=== PATIENT | male | born 1960 | race Caucasian/White ===

== ENCOUNTER 2016-08-02 09:25 | Emergency (ER) | payer OTHER ==
[~2016-08-02] VITALS: Ht 182.9 cm; Wt 99.8 kg
--- NOTE | ~2016-08-02 | EKG ---
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 : 1960 Requested By: Maykel Huitron Order Number: [id number] MD: José Dixon Measurements Intervals [place] Rate: 58 P: 31 OR: 160 QRS: -4 QRSD: 96 T: 35 QT: 446 QTc: 439 Interpretive Statements Sinus rhythm No significant abnormality Compared to ECG 12/14/2015 19:09:15 No significant change was found Electronically Signed On 08-03-2016 13:32:47 ALIGNMENT SPECIALIST by José Dixon [email or web address] <ELECTRONICALLY SIGNED> By: José Dixon MD, [facility] 08/03/16 1332 1020 1020 José Dixon MD, FACC /EPI
[~2016-08-02 09:25] MED LIST: AMOXICILLIN 50500 MG PO; ASPIR 8181 MG PO; ASPIRIN325 PO; BIAXIN500 MG PO; CHLORTHALIDONE25 MG PO; CLONAZEPAM 1 MG1 M1 PO; COLACE100 MG PO; FAMOTIDINE PO; GAS-X125 MG PO; IBUPROFEN 800800 M1 PO; MIRALAX17 GM PO; NAPROSYN500 MG PO; NORCO 10-325 T1 EACH PO; NORFLEX100 MG PO; OXYCODONE HCL 55 MG PO; OXYCONTIN20 M1 PO; PEPCID20 MG PO; PERCOCET 5-3251 EACH PO; PREVACID30 MG PO; TOPROL XL50 MG PO; ZOFRAN ODT4 MG PO
[2016-08-02] MEDS ORDERED: COZAAR 50 MG TA50 M2 PO (09:32)
== END 2016-08-02 11:16 | disposition home or self-care (01) ==
LOC: ER 09:25
DX: M54.12 Radiculopathy, cervical region (principal); R07.89 Other chest pain; M25.552 Pain in left hip; G25.81 Restless legs syndrome; K21.9 Gastro-esophageal reflux disease without esophagitis; F41.9 Anxiety disorder, unspecified; I10 Essential (primary) hypertension; B19.20 Unspecified viral hepatitis C without hepatic coma; Z98.890 Other specified postprocedural states; F17.210 Nicotine dependence, cigarettes, uncomplicated; F10.99 Alcohol use, unspecified with unspecified alcohol-induced disorder

== ENCOUNTER 2017-07-28 20:18 | Inpatient (IN) | payer OTHER ==
[~2017-07-28] VITALS: Ht 182.9 cm; Wt 99.8 kg
--- NOTE | ~2017-07-28 | S ---
[facility] [place] [address] [place] [address] SURGICAL PATH RPT PROCEDURE Name: FREDRICK CORCORAN Room #: 359-P ADM IN M.R.#: [id number] Admission: 07/28/17 Date of : 64 Discharge: Report #: [id number] Path Case #: [id number] PATHOLOGY REPORT COLLECTION DATE: 07/29/2017 RECEIVED DATE: 07/29/2017 SUBMITTING PHYS: Dr. Fran Martinez OTHER PHYS: Dr. Yordy Hyman SPECIMEN(S) RECEIVED: A.Antrum B.Distal esophagus * * * * * * * * * * * * FINAL DIAGNOSIS: A. "Antrum", biopsy: - Gastric antral type mucosa with khbz-sw-vbffccdf chronic active gastritis, mild activity. - H. pylori organisms PRESENT in moderate numbers by immunohistochemical stain (block A1); control reacted appropriately. B. "Distal esophagus", biopsy: - Esophageal squamous mucosa and gastric cardiac type mucosa with reactive changes, acute and chronic inflammation and focal intestinal metaplasia; no dysplasia seen (see comment). 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 Clinical and endoscopic correlation is required. (CLW:kai; 07/30/2017) PATHOLOGIST: Rose Mary Last M.D. REPORT ELECTRONICALLY SIGNED BY: Rose Mary Last M.D. DATE/TIME: 07/30/2017 16:49 * * * * * * * * * * * * GROSS PATHOLOGY: A. Received in formalin labeled "Fredrick Corcoran BX of antrum, rule out H. pylori," is a segment of bryant soft tissue measuring 0.4 cm in maximum dimension. The specimen is submitted entirely in cassette A1. B. Received in formalin labeled "Fredrick Corcoran LARRY distal esophagus, rule out Guzman's," are 3 segments of bryant soft tissue measuring 0.4 x 0.4, 0.2 cm in aggregate dimensions and ranging from 0.1 to 0.2 cm in maximum dimension. The specimen is submitted entirely in cassette B1. (TSD; 07/29/2017) [address] [address] SURGICAL PATH RPT PROCEDURE Name: FRDERICK CORCORAN Cris Room #: 359-P [facility] IN M.R.#: [id number] Admission: 07/28/17 Date of : 64 Discharge: Report #: [id number] Path Case #: [id number] CLINICAL HISTORY: Pre-OP DX: Nausea/vomiting Post-OP DX: Esophagitis, gastritis, hiatal hernia INITIAL CPT CODE(S): A; 74650, 48608 B; 67566 Professional services performed by [facility] at [address] , [place] [address] Technical services performed by [facility] at [address] [place] [address], [facility] [address] [address]. [facility] [address] [address] PHONE: [phone] DIRECTOR: Bon Stephens M.D. * * * END OF REPORT * * *
--- NOTE | ~2017-07-28 | EKG ---
[place] [address] [facility] 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 : 1960 Requested By: Dorothy Gordon Order Number: [id number] MD: Jose He Measurements Intervals [place] Rate: 95 P: -13 FL: 165 QRS: -37 QRSD: 92 T: 51 QT: 343 QTc: 431 Interpretive Statements Sinus rhythm Atrial premature complex RSR' in V1 or V2, probably normal variant Inferior infarct, old Artifact in lead(s) I,II,aVR,aVL,aVF and baseline wander in lead(s) V3 Compared to ECG 08/02/2016 10:20:48 Atrial premature complex(es) now present RSR' in V1 or V2 now present Myocardial infarct finding now present Electronically Signed On 07-29-2017 7:46:13 DRYWALL MECHANIC by Jose He [email or web address] <ELECTRONICALLY SIGNED> By: Jose He MD 07/29/17 0746 26 26 Jose He MD /EPI
--- NOTE | ~2017-07-28 | H ---
[facility] [place] [address] [place] [address] HISTORY AND PHYSICAL Name: FOZIA HOWARD Room #: 359-P ADM IN M.R.#: [id number] Admission: 07/28/17 Attend Phys: Yordy Hyman MD, FAAF Discharge: Date of : 64 Report #: [id number] THIS REPORT FOR: //name// CC: Zen Hyman DATE OF SERVICE: 07/29/2017 CHIEF COMPLAINT: Vomiting blood. HISTORY OF PRESENT ILLNESS: The patient is a 56-year-old white male fairly well known to me over the last several years, although he does not come to the doctor very often. He reports drinking quite a bit more alcohol over the last year than he had previously reported to me. He says he vomits every morning and the morning of this admission, he vomited blood came out as a stream of blood. He proceeded to the Emergency Department at [facility] and was admitted to the floor from where GI consult is obtained and he is now just recently back from the GI suites after an upper endoscopy that showed esophagitis and gastritis, an ultrasound did show hepatosplenomegaly. He does have a history of untreated hepatitis C. PAST MEDICAL HISTORY: Hepatitis C, GI bleeding even as a teenager, lumbar fracture age 19 from mechanical bowl, H. pylori gastrointestinal, L5-S1 microdiskectomy, Dr. Haney, varicose veins, ulcers. MEDICATIONS: OxyContin 20 mg 1 p.o. t.i.d., losartan/hydrochlorothiazide 100/25 one p.o. daily, Pepcid 20 mg 1 p.o. b.i.d. p.r.n., 81 mg aspirin daily, ondansetron 4 mg p.o. q. 6 hours p.r.n. nausea, Klonopin 1 mg p.o. at bedtime p.r.n. restless legs, ibuprofen 800 mg 1 p.o. q. 8 hours p.r.n. pain, simethicone 125 mg 1 p.o. q.i.d. p.r.n. gaseous distention. ALLERGIES: No known drug allergies. FAMILY HISTORY: Father of esophageal cancer, also had prostate cancer and varicose veins. SOCIAL HISTORY: He is , smokes a pack a day of cigarettes, has been drinking heavily over the last year, prior to that drinks occasionally. REVIEW OF SYSTEMS: CONSTITUTIONAL: Low grade temperature elevation, q.a.m. vomiting. EYES: No visual changes. ENT: No problems with hearing, swallow, taste or smell. CARDIOVASCULAR: No chest pain or palpitations. RESPIRATORY: No difficulty breathing. [facility] [address] [place] [address] HISTORY AND PHYSICAL Name: FOZIA HOWARD Cris Room #: 359-P [facility] [place] M.R.#: [id number] Admission: 07/28/17 Attend Phys: Yordy Hyman MD, FAAF Discharge: Date of : 64 Report #: [id number] GASTROINTESTINAL: Abdominal pain across the epigastrium, nausea and vomiting and vomiting blood on the morning of this admission. GENITOURINARY: No problems urinating. MUSCULOSKELETAL: Chronic back pain, restless legs. NEUROLOGIC: No paresis, paralysis or paresthesias. PSYCHIATRIC: Frustrated, not depressed. DERMATOLOGIC: No disturbing lesions or rash. Remainder of system review is negative. OBJECTIVE: VITAL SIGNS: Temperature is 37.1, pulse 108, respirations 20, blood pressure 132/95, pulse ox on room air is 100%. GENERAL: He appears fatigued, but is in no acute distress. HEENT: Pupils equal, round, reactive to light and accommodation. Extraocular muscles intact. Pharynx unremarkable. NECK: Supple. COR: S1, S2. CHEST: Clear. ABDOMEN: Soft, has tenderness across the epigastrium. No guarding or rebound. EXTREMITIES: Not edematous. NEUROLOGIC: He is intact without focal neurologic deficit. IMAGING: EKG in the Emergency Department, sinus rhythm at 95, left axis deviation, no acute ischemic changes. LABORATORY DATA: CBC: White count 7.8, hemoglobin 17.6, hematocrit 51.3, platelets 173,000, mean corpuscular volume elevated at 104.1. Serum chemistry: Sodium 139, potassium 4.0, chloride 106, CO2 of 25, BUN 16, creatinine 1.4, glomerular filtration rate estimated at 53, glucose 140, lactic acid 2.1, calcium 9.2, total bilirubin 0.7, direct bilirubin 0.3, AST 152, ALT 123, alkaline phosphatase 122, total protein 9.1, albumin 3.8, lipase 434. Protime 10.8, INR 1.1, APTT 25.6. Serum alcohol level 138. ASSESSMENT: Upper gastrointestinal bleed, gastritis, esophagitis, hepatitis C, hematemesis, alcohol abuse, elevated liver function tests, nausea and vomiting. PLAN: Admit to hospital, proton pump inhibition. Recommend abstaining from alcohol abuse and stopping smoking. A Gastroenterology consult is working. Recommend he consider treatment for hepatitis C. <ELECTRONICALLY SIGNED> By: Yordy Hyman MD, FAAFP, FACEP 07/30/17 0746 2333 0020 Yordy Hyman MD, FAAFP, FACEP /nt
[~2017-07-28 20:18] MED LIST changes: +COZAAR 50 MG TA50 M2 PO
[2017-07-28 20:19] VITALS: BP 132/95
[2017-07-28] MEDS ORDERED: HYZAAR 100-251 EACH PO (20:34)
[2017-07-28 20:50] LABS: ABSOLUTE NEUTROPHILS 5.3 thou/uL (1.4-8.2); EOSINOPHILS 2.3 % (0.0-3.0); HEMATOCRIT 51.3 % (42.0-52.0); HEMOGLOBIN 17.6 gm/dL (14.0-18.0); LYMPHOCYTES 24.4 % (24.0-44.0); MCH 35.7 pg (26.0-34.0); MCHC 34.3 g/dL (28.0-37.0); MCV 104.1 fL (80.0-100.0); MONOCYTES 4.6 % (1.0-8.0); PLATELET COUNT 173 thou/uL (150-400); POLYS 67.7 % (36.0-66.0); RBC 4.92 mil/uL (4.50-6.00); WBC 7.8 thou/uL (4.0-11.0)
[2017-07-28 20:59] LABS: CALCIUM 9.2 mg/dL (8.5-10.1); CREATININE 1.4 mg/dL (0.7-1.3)
[2017-07-28 21:05] LABS: ALBUMIN 3.8 g/dL (3.4-5.0); DIRECT BILIRUBIN 0.3 mg/dL (<0.1-0.3); TOTAL BILIRUBIN 0.7 mg/dL (<0.1-1.0); TOTAL PROTEIN 9.1 g/dL (6.4-8.2)
[2017-07-28 21:09] LABS: APTT 25.6 Seconds (24.5-32.8); INR 1.1; PROTIME 10.8 Seconds (9.3-11.4)
[2017-07-28 22:37] VITALS: BP 123/77
[2017-07-29 03:57] VITALS: BP 133/94
[2017-07-29 08:06] VITALS: BP 138/98
[2017-07-29 17:26] VITALS: BP 121/78
[2017-07-29 19:10] VITALS: BP 122/75
[2017-07-30 04:02] VITALS: BP 122/81
[2017-07-30 06:30] LABS: ALBUMIN 2.8 g/dL (3.4-5.0); DIRECT BILIRUBIN 0.3 mg/dL (<0.1-0.3)
[2017-07-30 08:04] LABS: MCH 35.5 pg (26.0-34.0); MCHC 33.9 g/dL (28.0-37.0); MCV 104.8 fL (80.0-100.0); RBC 4.2 mil/uL (4.50-6.00); WBC 10.8 thou/uL (4.0-11.0)
[2017-07-30 08:06] LABS: HEMOGLOBIN 14.9 gm/dL (14.0-18.0)
[2017-07-30 08:50] VITALS: BP 135/80
[2017-07-30 11:26] VITALS: BP 135/82
[2017-07-30] MEDS ORDERED: OMEPRAZOLE 20 M20 M1 PO (16:47)
[2017-07-30 17:32] VITALS: BP 126/73
[2017-07-30 18:30] VITALS: BP 126/73
[2017-07-30 18:50] VITALS: BP 126/73
== END 2017-07-30 18:49 | disposition home or self-care (01) | DRG 380 ==
LOC: ER 20:18 → 3W 21:11 → EROBS 21:11 → 3W 22:38
PROVIDERS: Emergency Medicine; Family Medicine; Nurse Practitioner
PROC: 0DB68ZX Excision of Stomach, Via Natural or Artificial Opening Endoscopic, Diagnostic (ICD-10-PCS; principal; 2017-07-29)
PROC: 0DB38ZX Excision of Lower Esophagus, Via Natural or Artificial Opening Endoscopic, Diagnostic (ICD-10-PCS; principal; 2017-07-29)
DX: K22.70 Barrett's esophagus without dysplasia (principal); K85.90 Acute pancreatitis without necrosis or infection, unspecified; K20.8 Other esophagitis; K29.71 Gastritis, unspecified, with bleeding; K92.0 Hematemesis; K22.8 Other specified diseases of esophagus; F10.129 Alcohol abuse with intoxication, unspecified; G25.81 Restless legs syndrome; K21.9 Gastro-esophageal reflux disease without esophagitis; I10 Essential (primary) hypertension; F41.9 Anxiety disorder, unspecified; F17.210 Nicotine dependence, cigarettes, uncomplicated; K20.9 Esophagitis, unspecified; B19.20 Unspecified viral hepatitis C without hepatic coma; K44.9 Diaphragmatic hernia without obstruction or gangrene; Z80.0 Family history of malignant neoplasm of digestive organs; Z80.42 Family history of malignant neoplasm of prostate; Z79.899 Other long term (current) drug therapy; Z90.49 Acquired absence of other specified parts of digestive tract; Z87.11 Personal history of peptic ulcer disease
CPT/HCPCS: 10879; 62110; 62900; 70005

== ENCOUNTER 2017-11-19 14:13 | Emergency (ER) | payer OTHER ==
[~2017-11-19] VITALS: Ht 182.9 cm; Wt 95.3 kg
--- NOTE | ~2017-11-19 | EKG ---
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 <ELECTRONICALLY SIGNED> By: Jose He MD 11/19/17 2229 1515 1515 Jose He MD /EPI
[~2017-11-19 14:13] MED LIST changes: +HYZAAR 100-251 EACH PO; +OMEPRAZOLE 20 M20 M1 PO
[2017-11-19 15:13] LABS: ABSOLUTE NEUTROPHILS 6.5 thou/uL (1.4-8.2); BASOPHILS 0.5 % (0.0-2.0); EOSINOPHILS 1.3 % (0.0-3.0); HEMATOCRIT 49.5 % (42.0-52.0); HEMOGLOBIN 16.9 gm/dL (14.0-18.0); LYMPHOCYTES 22.1 % (24.0-44.0); MCH 36.2 pg (26.0-34.0); MCHC 34.2 g/dL (28.0-37.0); MCV 105.8 fL (80.0-100.0); MONOCYTES 8.4 % (1.0-8.0); PLATELET COUNT 99 thou/uL (150-400); POLYS 67.7 % (36.0-66.0); RBC 4.68 mil/uL (4.50-6.00); RDW 15.9 % (10.5-14.5); WBC 9.7 thou/uL (4.0-11.0)
[2017-11-19 15:17] LABS: ANION GAP 7 mmol/L (7-16); BUN 14 mg/dL (7-18); CALCIUM 8.6 mg/dL (8.5-10.1); CHLORIDE 106 mmol/L (98-107); CO2 25 mmol/L (21-32); CREATININE 1.4 mg/dL (0.7-1.3); GLUCOSE 128 mg/dL (74-106); POTASSIUM 4.1 mmol/L (3.5-5.1); SODIUM 138 mmol/L (136-145)
[2017-11-19 15:26] LABS: ALBUMIN 3.3 g/dL (3.4-5.0); LIPASE 502 U/L (73-393); SGOT 109 U/L (15-37); SGPT 63 U/L (30-65); TOTAL BILIRUBIN 1.5 mg/dL (<0.1-1.0); TOTAL PROTEIN 8.3 g/dL (6.4-8.2); TROPONIN-I < 0.04 ng/mL (<0.06)
[2017-11-19 16:35] LABS: URINE BILIRUBIN NEGATIVE (Negative); URINE BLOOD NEGATIVE (Negative); URINE CLARITY CLEAR; URINE COLOR YELLOW; URINE GLUCOSE-RANDOM* NEGATIVE (Negative); URINE KETONES NEGATIVE (Negative); URINE LEUKOCYTES-REFLEX NEGATIVE (Negative); URINE NITRITE-REFLEX NEGATIVE (Negative); URINE PROTEIN (DIPSTICK) NEGATIVE (Negative); URINE SPECIFIC GRAVITY 1.015 (1.005-1.035)
[2017-11-19] MEDS ORDERED: PROMS25 WY RECTAL (16:49)
== END 2017-11-19 17:18 | disposition home or self-care (01) ==
LOC: ER 14:13
PROVIDERS: Emergency Medicine
DX: K85.90 Acute pancreatitis without necrosis or infection, unspecified (principal); I86.1 Scrotal varices; F41.9 Anxiety disorder, unspecified; K21.9 Gastro-esophageal reflux disease without esophagitis; I10 Essential (primary) hypertension; F17.210 Nicotine dependence, cigarettes, uncomplicated; Z86.19 Personal history of other infectious and parasitic diseases